=== PATIENT | male | born 1995 | race African-American/Black ===

== ENCOUNTER 2021-04-22 13:20 | Emergency (ER) | payer SELFPAY ==
[~2021-04-22] VITALS: Ht 180.3 cm; Wt 61.0 kg
--- NOTE | 2021-04-22 13:39 | PHYS DOC ---
Past Medical History Additional Past Medical Histor: DENIES ANY HEALTH HX Past Surgical History: Other Additional Past Surgical Histo: WRIST SURGERY Smoking Status: Current Every Day Smoker Alcohol Use: None General Adult EDM: Chief Complaint: NAUSEA/VOMITING/DIARRHEA HPI: HPI: Patient is a 25 year old male who present to ER for evaluation of nausea vomiting, and abdominal pain started earlier today. Patient denies any cough or fever, no chest pain. Patient denies any blood in his stool. Patient denies any similar problem in the past. Patient denies eating anything abnormal. Review of Systems: Review of Systems: Constitutional: Denies fever or chills. [] Eyes: Denies change in visual acuity. [] HENT: Denies nasal congestion or sore throat. [] Respiratory: Denies cough or shortness of breath. [] Cardiovascular: Denies chest pain or edema. [] GI: Positive for nausea vomiting and abdominal pain : Denies dysuria. [] Musculoskeletal: Denies back pain or joint pain. [] Integument: Denies rash. [] Neurologic: Denies headache, focal weakness or sensory changes. [] Endocrine: Denies polyuria or polydipsia. [] Lymphatic: Denies swollen glands. [] Psychiatric: Denies depression or anxiety. [] Heart Score: C/O Chest Pain: N/A Risk Factors: Risk Factors: DM, Current or recent (<one month) smoker, HTN, HLP, family history of CAD, obesity. Risk Scores: Score 0 - 3: 2.5% MACE over next 6 weeks - Discharge Home Score 4 - 6: 20.3% MACE over next 6 weeks - Admit for Clinical Observation Score 7 - 10: 72.7% MACE over next 6 weeks - Early Invasive Strategies Allergies: Allergies: Allergies Coded Allergies Type Severity Reaction Last Updated Verified No Known Drug Allergies 04/22/21 No Physical Exam: PE: Constitutional: Well developed, well nourished, no acute distress, non-toxic appearance. [] HENT: Normocephalic, atraumatic, bilateral external ears normal, oropharynx moist, no oral exudates, nose normal. [] Eyes: PERRLA, EOMI, conjunctiva normal, no discharge. [] Neck: Normal range of motion, no tenderness, supple, no stridor. [] Cardiovascular:Heart rate regular rhythm, no murmur [] Lungs & Thorax: Bilateral breath sounds clear to auscultation [] Abdomen: Bowel sounds normal, soft, no tenderness, no masses, no pulsatile masses. [] Skin: Warm, dry, no erythema, no rash. [] Back: No tenderness, no CVA tenderness. [] Extremities: No tenderness, no cyanosis, no clubbing, ROM intact, no edema. [] Neurologic: Alert and oriented X 3, normal motor function, normal sensory function, no focal deficits noted. [] Psychologic: Affect normal, judgement normal, mood normal. [] Current Patient Data: Labs: Laboratory Tests Test 04/22/21 14:10 04/22/21 15:40 04/22/21 15:45 White Blood Count 16.3 x10^3/uL Red Blood Count 6.45 x10^6/uL Hemoglobin 18.4 g/dL Hematocrit 55.5 % Mean Corpuscular Volume 86 fL Mean Corpuscular Hemoglobin 29 pg Mean Corpuscular Hemoglobin Concent 33 g/dL Red Cell Distribution Width 14.7 % Platelet Count 243 x10^3/uL Neutrophils (%) (Auto) 93 % Lymphocytes (%) (Auto) 2 % Monocytes (%) (Auto) 4 % Eosinophils (%) (Auto) 1 % Basophils (%) (Auto) 0 % Neutrophils # (Auto) 15.2 x10^3/uL Lymphocytes # (Auto) 0.3 x10^3/uL Monocytes # (Auto) 0.6 x10^3/uL Eosinophils # (Auto) 0.2 x10^3/uL Basophils # (Auto) 0.0 x10^3/uL Segmented Neutrophils % 81 % Band Neutrophils % 12 % Lymphocytes % 2 % Atypical Lymphocytes % (Manual) 1 % Monocytes % 4 % Platelet Estimate Adequate Large Platelets Occ Sodium Level 142 mmol/L Potassium Level 4.9 mmol/L Chloride Level 106 mmol/L Carbon Dioxide Level 28 mmol/L Anion Gap 8 Blood Urea Nitrogen 13 mg/dL Creatinine 1.1 mg/dL Estimated GFR (Cockcroft-Gault) 99.5 BUN/Creatinine Ratio 12 Glucose Level 88 mg/dL Calcium Level 8.0 mg/dL Magnesium Level 1.8 mg/dL Total Bilirubin 1.5 mg/dL Aspartate Amino Transf (AST/SGOT) 28 U/L Alanine Aminotransferase (ALT/SGPT) 31 U/L Alkaline Phosphatase 60 U/L Total Protein 8.0 g/dL Albumin 3.9 g/dL Albumin/Globulin Ratio 1.0 Lipase 164 U/L Urine Collection Type Unknown Urine Color Yellow Urine Clarity Clear Urine pH 6.5 Urine Specific Debary 1.010 Urine Protein Negative mg/dL Urine Glucose (UA) Negative mg/dL Urine Ketones (Stick) Trace mg/dL Urine Blood Negative Urine Nitrite Negative Urine Bilirubin Negative Urine Urobilinogen Dipstick 1.0 mg/dL Urine Leukocyte Esterase Negative Urine RBC 0 /HPF Urine WBC 0 /HPF Urine Squamous Epithelial Cells Occ /LPF Urine Bacteria 0 /HPF Urine Mucus Slight /LPF Urine Opiates Screen Neg Urine Methadone Screen Neg Urine Barbiturates Neg Urine Phencyclidine Screen Neg Urine Amphetamine/Methamphetamine Pos Urine Benzodiazepines Screen Neg Urine Cocaine Screen Neg Urine Cannabinoids Screen Neg Urine Ethyl Alcohol Neg Current Medications Medications (Trade) Dose Ordered Sig/Catracho Route PRN Reason Start Time Stop Time Status Last Admin Dose Admin Sodium Chloride 1,000 ml @ 1,000 mls/hr 1X ONCE IV 04/22/21 14:00 04/22/21 14:59 DC 04/22/21 14:10 Ondansetron HCl (Zofran) 4 mg 1X ONCE IVP 04/22/21 14:00 04/22/21 14:01 DC 04/22/21 14:11 Sodium Chloride 1,000 ml @ 1,000 mls/hr 1X ONCE IV 04/22/21 15:30 04/22/21 16:29 DC 04/22/21 15:38 Iohexol (Omnipaque 300 Mg/ml) 75 ml 1X ONCE IV 04/22/21 16:00 04/22/21 16:01 DC 04/22/21 16:03 Info (CONTRAST GIVEN -- Rx MONITORING) 1 each PRN DAILY PRN MC SEE COMMENTS 04/22/21 16:00 04/24/21 15:59 Ketorolac Tromethamine (Toradol 30mg Vial) 30 mg 1X ONCE IVP 04/22/21 17:00 04/22/21 17:01 DC 04/22/21 17:31 Vital Signs: Vital Signs Date Time Temp Pulse Resp B/P (MAP) Pulse Ox O2 Delivery O2 Flow Rate FiO2 04/22/21 13:25 97.4 91 12 157/107 (124) 96 Room Air 97.4 EKG: EKG: [] Radiology/Procedures: Radiology/Procedures: [facility] [id number] [place], [place] [id number] IMAGING REPORT Signed PATIENT: SULEIMAN RAMOS ACCOUNT: [id number] : 1995 LOCATION: ER AGE: 25 SEX: M EXAM STATUS: REG ER ORD. PHYSICIAN: JOSE SAMSON DO REASON: abdominal pain, nausea and vomiting PROCEDURE: CT ABD PELV W/ IV CONTRST ONLY CT abdomen pelvis with contrast dated 04/22/2021. COMPARISON: None. CLINICAL INDICATION: Abdominal pain nausea vomiting. TECHNIQUE: Contiguous axial imaging the M pelvis performed after the administration of 75 cc Omnipaque 300. One or more of the following individualized dose reduction techniques were utilized for this examination: 1. Automated exposure control 2. Adjustment of the mA and/or kV according to patient size 3. Use of iterative reconstruction technique FINDINGS: Limited images of lung bases are clear. Heart size within normal limits. No pleural or pericardial effusion. Liver, spleen, pancreas, adrenal glands, gallbladder and kidneys are unremarkable. No hydronephrosis. Unopacified GI tract normal in caliber and contour. No focal bowel wall thi ckening. No inflammatory stranding in the mesentery. No ascites or lymphadenopathy. Abdominal aorta normal in caliber. The appendix is not clearly identified. No inflammatory changes in the right lower quadrant. There are fluid-filled loops of small and large bowel and stomach. Images of pelvis show nondistended urinary bladder. Prostate gland normal in size. No free fluid or pelvic lymphadenopathy. There appears to be an incompletely descended testicle on the right. Borderline enlarged bilateral inguinal lymph nodes, nonspecific. Bone window show no acute findings. IMPRESSION: 1. Nondilated fluid-filled loops of small and large bowel without significant bowel wall thickening or mesenteric inflammatory changes. This is nonspecific but could be related to acute enteritis. No evidence of bowel obstruction. 2. The appendix is not clearly identified. No inflammatory changes in the right lower quadrant. 3. Possible incompletely descended testicle and right. Electronically signed by: Ubaldo Landa MD (04/22/2021 4:31 PM) [facility] DICTATED and SIGNED BY: UBALDO LANDA MD DATE: 04/22/21 [id number] 0 Course & Med Decision Making: Course & Med Decision Making Pertinent Labs and Imaging studies reviewed. (See chart for details) Patient is a 25-year-old male who present to ER due to nausea vomiting, abdominal pain, diarrhea. CT scan of her abdomen pelvic consistent with gastroenteritis. Patient was tested positive for Metformin as well. Patient was given IV fluids, IV nausea medication in ER, he feel much better. Patient will be discharged home. Dragon Disclaimer: Tresa Disclaimer: This electronic medical record was generated, in whole or in part, using a voice recognition dictation system. Departure Departure Impression: Primary Impression: Gastroenteritis Additional Impression: Dehydration Disposition: HOME / SELF CARE / HOMELESS Condition: IMPROVED Patient Instructions: Dehydration, Adult, Viral Gastroenteritis Additional Instructions: Thank you for visiting our Emergency Department. We appreciate you trusting us with your care. If any additional problems come up don't hesitate to return to visit us. Please follow up with your primary care provider so they can plan additional care if needed and know about the problem that you had. If symptoms worsen come back to the Emergency Department. Any concerning symptoms that start such as chest pain, shortness of air, weakness or numbness on one side of the body, running high fevers or any other concerning symptoms return to the ER. Scripts Metoclopramide Hcl (REGLAN) 10 Mg Tablet 1 TAB PO QID PRN for NAUSEA for 5 Days, #20 TAB 0 Refills before food and bedtime Prov: JOSE SAMSON DO 04/22/21 JOSE SAMSON DO Apr 22, 2021 13:39
[2021-04-22] MEDS ORDERED: ONDANSETRON PF 4 MG/2 ML VIAL. IVP ONE (14:00)
[2021-04-22] MEDS ORDERED: IV NORMAL SALINE 1000ML BAG 1,000 ML IV ONE ×2 (14:00→15:30)
[2021-04-22 14:44] LABS: BASO % 0 % (0-3); EOS # 0.2 x10^3/uL (0.0-0.7); EOS % 1 % (0-3); HEMATOCRIT 55.5 % (39.0-53.0); HEMOGLOBIN 18.4 g/dL (13.0-17.5); LYMPH # 0.3 x10^3/uL (1.0-4.8); LYMPH % 2 % (24-48); MEAN CORPUSCULAR HEMOGLOBIN 29 pg (25-35); MEAN CORPUSCULAR HGB CONC 33 g/dL (31-37); MEAN CORPUSCULAR VOLUME 86 fL (79-100); MONO # 0.6 x10^3/uL (0.0-1.1); MONO % 4 % (0-9); NEUT # 15.2 x10^3/uL (1.8-7.7); NEUT % 93 % (31-73); PLATELET COUNT 243 x10^3/uL (140-400); RED BLOOD COUNT 6.45 x10^6/uL (4.30-5.70); RED CELL DISTRIBUTION WIDTH 14.7 % (11.5-14.5); WHITE BLOOD COUNT 16.3 x10^3/uL (4.0-11.0)
[2021-04-22 15:37] LABS: % ATYL 1 % (0-0); % BANDS 12 % (0-9); % LYMPHS 2 % (24-48); % MONOS 4 % (0-10); % SEGS 81 % (35-66)
[2021-04-22 15:44] LABS: PLT ESTIMATE ADEQUATE (ADEQUATE)
[2021-04-22] MEDS ORDERED: CONTRAST GIVEN. MC PRN (16:00)
[2021-04-22] MEDS ORDERED: IOHEXOL 300 MG/ML 100ML VIAL. IV ONE (16:00)
[2021-04-22 16:01] LABS: BILIRUBIN,URINE NEGATIVE (NEG); CLARITY,URINE CLEAR; COLOR,URINE YELLOW; NITRITE,URINE NEGATIVE (NEG); PH,URINE 6.5 (<5.0-8.0); PROTEIN,URINE NEGATIVE (NEG-TRACE)
[2021-04-22 16:09] LABS: CREATININE 1.1 mg/dL (0.7-1.3); GFR 99.5; POTASSIUM 4.9 mmol/L (3.5-5.1)
[2021-04-22 16:10] LABS: BARBITURATES NEG (NEG); BENZODIAZEPINES NEG (NEG); CANNABINOIDS NEG (NEG); COCAINE NEG (NEG); METHADONE NEG (NEG); OPIATES NEG (NEG); PHENCYCLIDINE NEG (NEG)
[2021-04-22 16:12] LABS: AMPHETAMINE/METHAMPHETAMINE POS (NEG)
[2021-04-22 16:14] LABS: ALBUMIN 3.9 g/dL (3.4-5.0); MAGNESIUM 1.8 mg/dL (1.8-2.4); TOTAL BILIRUBIN 1.5 mg/dL (0.2-1.0)
[2021-04-22 16:14] LABS: BACTERIA,URINE 0 /HPF (0-FEW); RBC,URINE 0 /HPF (0-2); WBC,URINE 0 /HPF (0-4)
--- NOTE | 2021-04-22 16:34 | RAD ---
CT abdomen pelvis with contrast dated 04/22/2021. COMPARISON: None. CLINICAL INDICATION: Abdominal pain nausea vomiting. TECHNIQUE: Contiguous axial imaging the M pelvis performed after the administration of 75 cc Omnipaque 300. One or more of the following individualized dose reduction techniques were utilized for this examinat ion: 1. Automated exposure control 2. Adjustment of the mA and/or kV according to patient size 3. Use of iterative reconstruction technique FINDINGS: Limited images of lung bases are clear. Heart size within normal limits. No pleural or pericardial ef fusion. Liver, spleen, pancreas, adrenal glands, gallbladder and kidneys are unremarkable. No hydronephrosis. Unopacified GI tract normal in caliber and contour. No focal bowel wall thickening. No inflammatory s tranding in the mesentery. No ascites or lymphadenopathy. Abdominal aorta normal in caliber. The appe ndix is not clearly identified. No inflammatory changes in the right lower quadrant. There are fluid- filled loops of small and large bowel and stomach. Images of pelvis show nondistended urinary bladder. Prostate gland normal in size. No free fluid or p elvic lymphadenopathy. There appears to be an incompletely descended testicle on the right. Borderlin e enlarged bilateral inguinal lymph nodes, nonspecific. Bone window show no acute findings. IMPRESSION: 1. Nondilated fluid-filled loops of small and large bowel without significant bowel wall thickening o r mesenteric inflammatory changes. This is nonspecific but could be related to acute enteritis. No ev idence of bowel obstruction. 2. The appendix is not clearly identified. No inflammatory changes in the right lower quadrant. 3. Possible incompletely descended testicle and right. Electronically signed by: Ubaldo Landa MD (04/22/2021 4:31 PM) [facility]
[2021-04-22] MEDS ORDERED: KETOROLAC 30 MG/ML VIAL. IVP ONE (17:00)
[2021-04-22] MEDS ORDERED: METO10TA81 PO (17:38)
[2021-04-22 17:56] VITALS: BP 138/85
== END 2021-04-22 17:58 | disposition home or self-care (01) ==
LOC: ER 13:20
DX: K52.9 Noninfective gastroenteritis and colitis, unspecified (principal); E86.0 Dehydration; F17.200 Nicotine dependence, unspecified, uncomplicated
CPT/HCPCS: 36415; 74177; 80053; 80307; 81001; 83690; 83735; 85007; 85025; 96361; 96374; 96375; 99285; J1885; J2405; J7030; Q9967